=== PATIENT | female | born 1965 | race Caucasian/White ===

== ENCOUNTER 2020-04-19 14:27 | Emergency (ER) | payer MEDICARE, OTHER ==
[~2020-04-19] VITALS: Ht 162.6 cm; Wt 72.7 kg
[2020-04-19 14:31] VITALS: Ht 162.6 cm; Wt 72.7 kg
[2020-04-19] MEDS ORDERED: K-TAB10 MEQ PO (14:33)
[2020-04-19] MEDS ORDERED: LIDODERM 5 %1 PATCH TRANSDERM (14:33)
[2020-04-19] MEDS ORDERED: ZANAFLEX4 MG PO (14:33)
[2020-04-19] MEDS ORDERED: TOPAMAX50 MG PO (14:34)
[2020-04-19] MEDS ORDERED: PERCOCET 7.5/321 TAB PO (14:34)
[2020-04-19] MEDS ORDERED: VITAMIN D1000 UNIT PO (14:34)
[2020-04-19] MEDS ORDERED: PROZAC40 MG PO (14:34)
[2020-04-19] MEDS ORDERED: HYDROXYCHLOROQ200 MG PO (14:35)
[2020-04-19] MEDS ORDERED: ZOFRAN4 MG PO (14:35)
[2020-04-19] MEDS ORDERED: ESTRACE1 MG PO (14:35)
[2020-04-19] MEDS ORDERED: FLUTICASONE PRO16 GM NASAL (14:35)
[2020-04-19] MEDS ORDERED: IMITREX100 MG PO (14:36)
[2020-04-19] MEDS ORDERED: WELLBUTRIN XL150 M1 PO (14:36)
[2020-04-19] MEDS ORDERED: PREDNISONE10 MG PO (14:36)
[2020-04-19] MEDS ORDERED: LISINOPRIL20 MG PO (14:36)
[2020-04-19] MEDS ORDERED: ATIVAN1 MG PO (14:36)
[2020-04-19] MEDS ORDERED: LINZESS290 MCG PO (14:37)
[2020-04-19] MEDS ORDERED: TRAZODONE HCL150 MG PO (14:37)
[2020-04-19] MEDS ORDERED: RELISTOR (14:37)
[2020-04-19] MEDS ORDERED: NORVASC5 MG PO (14:37)
[2020-04-19 15:21] LABS: BASOPHILS 0.9 % (0-2); BILIRUBIN NEGATIVE (NEGATIVE); EOSINOPHILS 1.2 % (0-7); GLUCOSE NEGATIVE (NEGATIVE); HEMATOCRIT 39.8 % (36.0-48.0); HEMOGLOBIN 13.4 g/dL (12-16); IMMATURE GRANULOCYTES 0.2 % (0-5); KETONE NEGATIVE (NEGATIVE); LYMPHOCYTES 41.5 % (15-50); MCH 31.5 pg (26.0-34.0); MCHC 33.7 g/dL (31.0-37.0); MCV 93.4 fL (80.0-100.0); MEAN PLATELET VOLUME 9.3 fL (7.4-10.4); MONOCYTES 8.2 % (2-11); NITRITE NEGATIVE (NEGATIVE); PLATELET COUNT 309 10x3/uL (130-400); RBC 4.26 10x6/uL (4.00-5.40); RDW 12.3 % (11.5-14.5); SPECIFIC GRAVITY 1.015 (1.005-1.020); UROBILINOGEN NORMAL (NORMAL); WBC 5.6 10x3/uL (4.8-10.8)
[2020-04-19 15:33] LABS: CALC OSMOLALITY 272 mosm/kg (275-300); CALCIUM 8.8 mg/dL (8.5-10.1); CARBON DIOXIDE 28.8 mmol/L (21.0-32.0); CHLORIDE - SERUM 102 mmol/L (98-107); CREATININE - SERUM 1.1 mg/dL (0.6-1.3); GLUCOSE 94 mg/dL (74-106); POTASSIUM - SERUM 3.7 mmol/L (3.5-5.1); SODIUM 137 mmol/L (136-145); UREA NITROGEN 11 mg/dL (7-18); eGFR NON AFRICAN AMERICAN 55 mL/min (90-120)
[2020-04-19 15:41] LABS: ALBUMIN 4.1 g/dL (3.4-5.0); ALKALINE PHOSPHATASE 60 U/L (30-120); ALT (SGPT) 34 U/L (10-68); AMYLASE - SERUM 48 U/L (25-115); BILIRUBIN - TOTAL 0.28 mg/dL (0.2-1.3); LIPASE 149 U/L (73-393); PROTEIN - SERUM 7.3 g/dL (6.4-8.2)
[2020-04-19 15:43] LABS: TROPONIN-I < 0.017 ng/mL (0.000-0.060)
[2020-04-19] MEDS ORDERED: PREDNISONE20 MG PO (17:31)
[2020-04-19 17:45] VITALS: BP 134/82
== END 2020-04-19 17:51 | disposition home or self-care (01) ==
LOC: D.ER 14:27
PROVIDERS: Family Medicine
DX: M94.0 Chondrocostal junction syndrome [Tietze] (principal); M32.9 Systemic lupus erythematosus, unspecified; R10.11 Right upper quadrant pain; R11.2 Nausea with vomiting, unspecified; R19.7 Diarrhea, unspecified; I10 Essential (primary) hypertension